=== PATIENT | male | born 1980 | race Caucasian/White ===

== ENCOUNTER 2019-03-31 23:00 | Emergency (ER) | payer SELFPAY ==
[~2019-03-31] VITALS: Ht 175.3 cm; Wt 95.3 kg
[2019-03-31 23:00] VITALS: BP 175/105
--- NOTE | 2019-03-31 23:00 | NUR ---
PT AMBULATED IN CUSTODY TO [facility] WITH [facility] OFFICER
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
[2019-03-31 23:31] VITALS: BP 175/105
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
== END 2019-03-31 23:31 ==
LOC: MED 23:00
DX: Z04.1 Encounter for examination and observation following transport accident (principal)
CPT/HCPCS: 99283